=== PATIENT | male | born 1985 | race Caucasian/White ===

== ENCOUNTER 2018-07-06 05:44 | Inpatient (IN) ==
[2018-07-06] MEDS ORDERED: NALOXONE 0.4 MG/ML VIAL ONE (05:46)
[2018-07-06] MEDS ORDERED: SODIUM CHLORIDE 0.9% 1,000 ML IV STA ×3 (06:02→09:15)
[2018-07-06] MEDS ORDERED: ROCURONIUM 100 MG/10 ML VIAL IV STA (06:03)
[2018-07-06] MEDS ORDERED: ETOMIDATE 20 MG/10 ML VIAL IV STA (06:03)
[2018-07-06 06:24] LABS: ABG Base Excess -7.6 MMOL/L (-2.5-2.5); ABG HCO3 18.5 MMOL/L (20-26); ABG Oxygen Saturation 99.3 % (95-100); ABG PCO2 68.5 MM HG (35-48); ABG TCO2 21.3 MMOL/L (23-27); Allen Test Positive; Pt O2 Delivery Device Ventilator
[2018-07-06] MEDS ORDERED: NALOXONE 0.4 MG/ML VIAL IV STA (06:27)
[2018-07-06 06:30] LABS: Basophils # 0.1 10*3/uL (0.0-0.2); Basophils % 0.5 % (0.0-0.8); Hematocrit 48.6 VOL% (42.0-52.0); Immature Granulocytes % 3.9 %; Lymphocytes # 1.7 10*3/uL (1.4-4.0); Lymphocytes % 6.4 % (21.2-54.2); Mean Corpuscular HGB Conc 30.9 GM/DL (32-36); Mean Corpuscular Volume 97.2 FL (87-102); Mean Platelet Volume 10.1 FL (9.6-12.0); Monocytes % 9.6 % (1.7-12.7); Neutrophils % 79.6 % (38.7-73.9); Platelet Count 414 T/CUMM (130-400); Red Cell Distribution Width 14.2 % (9.3-17.3)
[2018-07-06] MEDS ORDERED: cefTRIAXone 2,000 MG in SODIUM CHLORIDE 0.9% 100 ML IV ONE (06:39)
[2018-07-06 06:46] LABS: Amorphous Crystals,Urine Moderate /HPF (Few); Apearance,Urine CLOUDY (Clear); Bilirubin,Urine Negative (Negative); Blood, Urine Large mg/dL (Negative); Glucose,Urine (UA) >=500 mg/dL (Negative); Ketones,Urine Negative (Negative); Mucus,Urine Occasional /LPF (Occasional); Nitrite,Urine Negative (Negative); Protein,Urine 100 MG/DL; RBC,Urine 2 /HPF (0-4); Urine Color Yellow (Yellow); Urine Specific Gravity 1.014 (1.001-1.035); Urine Urobilinogen < 2.0 EU/DL (0.2-1.0); WBC,Urine 2 /HPF (0-6)
[2018-07-06 06:50] LABS: Barbiturates Screen,Urine Negative (Negative); Benzodiazepines Screen,Urine Negative (Negative); Cannabinoid Screen,Urine Negative (Negative); Opiate Screen,Urine Negative (Negative); Phencyclidine Screen,Urine Negative (Negative)
[2018-07-06 06:51] LABS: Alanine Aminotransferase 67 U/L (16-61); Albumin 3.4 G/DL (3.4-5.0); Alkaline Phosphatase 101 U/L (45-117); Aspartate Amino Transferase 265 U/L (0-37); Bilirubin,Total < 0.39 MG/DL (0.2-1.0); Blood Urea Nitrogen 19 MG/DL (7-18); Calcium 8.3 MG/DL (8.5-10.1); Glucose 52 MG/DL (74-106); Osmolality,Calculated 277.4 MOS/KG (273-304); Total Protein 7.8 G/DL (6.4-8.3)
[2018-07-06 06:54] LABS: Anisocytosis 1+; Band Neutrophils 2 % (0-10); Lymphocytes 12 % (20-55); Platelet Estimate Adequate; Segmented Neutrophils 77 % (50-85); Total Cells Counted 100
[2018-07-06] MEDS ORDERED: PROPOFOL 1,000 MG/100 ML BOTTLE IV ONE (07:02)
[2018-07-06] MEDS ORDERED: PROPOFOL 1,000 MG/100 ML BOTTLE IV SCH (07:30)
[2018-07-06] MEDS ORDERED: cefTRIAXone 1,000 MG VIAL ONE (07:31)
[2018-07-06] MEDS ORDERED: NOREPINEPHRINE 4 MG/4 ML VIAL IV ONE ×2 (07:41→12:00)
[2018-07-06] MEDS: NOREPINEPHRINE 8 MG in SODIUM CHLORIDE 0.9% 242 ML IV PRN ×2 (08:05→12:04)
[2018-07-06] MEDS ORDERED: ALBUTEROL 2.5 MG/3 ML NEB RESP TX PRN (08:13)
[2018-07-06] MEDS ORDERED: ONDANSETRON 4 MG/2 ML VIAL IV PRN (08:13)
[2018-07-06] MEDS ORDERED: LACTATED RINGERS 1,000 ML IV SCH (08:30)
[2018-07-06] MEDS ORDERED: VECURONIUM 10 MG VIAL IV ONE (08:31)
[2018-07-06] MEDS ORDERED: VECURONIUM 10 MG VIAL IV STA (08:33)
[2018-07-06 09:09] LABS: Acetaminophen < 2.0 UG/ML (10-30)
[2018-07-06 09:41] LABS: Lymphocytes,CSF 33 %; Monocytes,CSF 67 %; Red Blood Cell,CSF 26 C/CUMM; White Blood Cell,CSF 2 C/CUMM
[2018-07-06 09:43] LABS: Appearance,CSF CLEAR
[2018-07-06] MEDS: PANTOPRAZOLE 40 MG VIAL IV SCH (09:44)
[2018-07-06] MEDS: ENOXAPARIN 40 MG/0.4 ML SYRINGE SUBCUT SCH (09:47)
[2018-07-06] MEDS ORDERED: MIDAZOLAM 2 MG/2 ML VIAL ONE (10:06)
[2018-07-06] MEDS ORDERED: MIDAZOLAM 2 MG/2 ML VIAL IV STA (10:10)
[2018-07-06] MEDS: LEVOFLOXACIN INJ 500 MG in PREMIX 1 EACH IV SCH (10:52)
[2018-07-06 11:11] LABS: Barbiturates Screen,Urine Negative (Negative); Benzodiazepines Screen,Urine Negative (Negative); Cannabinoid Screen,Urine Negative (Negative); Opiate Screen,Urine Negative (Negative); Phencyclidine Screen,Urine Negative (Negative)
[2018-07-06] MEDS ORDERED: LORazepam 2 MG/1 ML VIAL IV STA (11:20)
[2018-07-06] MEDS ORDERED: MORPHINE 4 MG/1 ML VIAL IV STA (11:20)
[2018-07-06] MEDS ORDERED: MORPHINE 4 MG/1 ML VIAL ONE (11:22)
[2018-07-06] MEDS ORDERED: LORazepam 2 MG/1 ML VIAL ONE (11:22)
[2018-07-06] MEDS: fentaNYL INJ 1,250 MCG in SODIUM CHLORIDE 0.9% 225 ML IV PRN ×2 (13:00→21:30)
[2018-07-06] MEDS: MIDAZOLAM 100 MG in SODIUM CHLORIDE 0.9% 80 ML IV PRN (13:00)
[2018-07-06] MEDS: ALBUTEROL/IPRATROPIUM 3 ML NEB RESP TX SCH ×2 (13:05→19:30)
[2018-07-06 14:01] LABS: ABG Base Excess -5.4 MMOL/L (-2.5-2.5); ABG HCO3 20.1 MMOL/L (20-26); ABG Oxygen Saturation 99.5 % (95-100); ABG PCO2 43.5 MM HG (35-48); ABG PH 7.298 (7.35-7.45); ABG TCO2 17.9 MMOL/L (23-27); Allen Test Positive; Pt O2 Delivery Device Ventilator
[2018-07-06 14:08] LABS: Alanine Aminotransferase 288 U/L (16-61); Alkaline Phosphatase 86 U/L (45-117); Aspartate Amino Transferase 1628 U/L (0-37); Bilirubin,Total < 0.39 MG/DL (0.2-1.0); Blood Urea Nitrogen 23 MG/DL (7-18); Glucose 99 MG/DL (74-106); Osmolality,Calculated 276.8 MOS/KG (273-304); Total Protein 7.1 G/DL (6.4-8.3)
[2018-07-06] MEDS ORDERED: SODIUM POLYSTYRENE SULFATE 15 GM/60 ML BOTTLE PO ONE (14:18)
[2018-07-06] MEDS: DEXTROSE 5% NACL 0.45% 1,000 ML IV SCH (16:27)
[2018-07-06 18:18] LABS: CKMB % 0.5 %
[2018-07-06 18:23] LABS: Troponin I 3.6 NG/ML (0.00-0.045)
[2018-07-06 21:34] LABS: CKMB % 0.7 %
[2018-07-06 21:36] LABS: Troponin I 7.03 NG/ML (0.00-0.045)
[2018-07-07] MEDS: DEXTROSE 5% NACL 0.45% 1,000 ML IV SCH ×2 (00:27→07:00)
[2018-07-07] MEDS: ALBUTEROL/IPRATROPIUM 3 ML NEB RESP TX SCH ×4 (01:08→20:18)
[2018-07-07 01:54] LABS: CKMB % 0.3 %
[2018-07-07 01:58] LABS: Troponin I 6.11 NG/ML (0.00-0.045)
[2018-07-07 04:46] LABS: ABG Base Excess -2.7 MMOL/L (-2.5-2.5); ABG HCO3 22.2 MMOL/L (20-26); ABG Oxygen Saturation 97.6 % (95-100); ABG PCO2 40.6 MM HG (35-48); ABG PH 7.356 (7.35-7.45); ABG TCO2 18.7 MMOL/L (23-27); Allen Test Positive; Pt O2 Delivery Device Ventilator
[2018-07-07 05:59] LABS: Basophils # 0.1 10*3/uL (0.0-0.2); Basophils % 0.3 % (0.0-0.8); Hematocrit 52.7 VOL% (42.0-52.0); Hemoglobin 16.7 GM/DL (14.0-18.0); Immature Granulocytes % 0.9 %; Immature Granulocytes Absolute 0.19 #; Lymphocytes # 1.2 10*3/uL (1.4-4.0); Lymphocytes % 5.5 % (21.2-54.2); Mean Corpuscular HGB Conc 31.7 GM/DL (32-36); Mean Corpuscular Volume 92.6 FL (87-102); Mean Platelet Volume 10.8 FL (9.6-12.0); Monocytes % 6.2 % (1.7-12.7); Neutrophils % 87.1 % (38.7-73.9); Platelet Count 315 T/CUMM (130-400); Red Blood Count 5.69 MC/CUMM (3.8-5.5); Red Cell Distribution Width 14.5 % (9.3-17.3)
[2018-07-07] MEDS: fentaNYL INJ 1,250 MCG in SODIUM CHLORIDE 0.9% 225 ML IV PRN ×3 (06:20→23:11)
[2018-07-07 06:23] LABS: Albumin 2.1 G/DL (3.4-5.0); Bilirubin,Total 0.6 MG/DL (0.2-1.0); Calcium 7.2 MG/DL (8.5-10.1); Osmolality,Calculated 286.7 MOS/KG (273-304); Total Protein 6.5 G/DL (6.4-8.3)
[2018-07-07 06:37] LABS: Band Neutrophils 4 % (0-10); Lymphocytes 4 % (20-55); Platelet Estimate Normal; Segmented Neutrophils 87 % (50-85); Total Cells Counted 100
[2018-07-07] MEDS ORDERED: IBUPROFEN 100 MG/5 ML UDCUP PO PRN (08:35)
[2018-07-07] MEDS: SODIUM BICARB INJ 150 MEQ in DEXTROSE 5% 850 ML IV SCH ×3 (09:45→21:30)
[2018-07-07] MEDS: methylPREDNISolone SOD SUC 40 MG/1 ML VIAL IV SCH ×2 (10:15→21:30)
[2018-07-07] MEDS: ENOXAPARIN 40 MG/0.4 ML SYRINGE SUBCUT SCH (10:16)
[2018-07-07] MEDS: METOPROLOL TARTRATE 5 MG/5 ML VIAL IV SCH ×3 (10:19→10:46)
[2018-07-07] MEDS: PANTOPRAZOLE 40 MG VIAL IV SCH (10:38)
[2018-07-07] MEDS: LEVOFLOXACIN INJ 500 MG in PREMIX 1 EACH IV SCH (10:39)
[2018-07-07] MEDS: cefTRIAXone 2,000 MG in SYRINGE 1 EACH IV SCH (14:22)
[2018-07-07] MEDS ORDERED: VECURONIUM 10 MG VIAL IV ONE ×2 (18:22→18:25)
[2018-07-07] MEDS: PROPOFOL 1,000 MG/100 ML BOTTLE IV SCH (19:50)
[2018-07-07] MEDS ORDERED: PROPOFOL 1,000 MG/100 ML BOTTLE IV ONE (19:51)
[2018-07-08] MEDS: PROPOFOL 1,000 MG/100 ML BOTTLE IV SCH ×2 (00:57→15:45)
[2018-07-08] MEDS: ALBUTEROL/IPRATROPIUM 3 ML NEB RESP TX SCH ×4 (00:58→19:44)
[2018-07-08] MEDS: SODIUM BICARB INJ 150 MEQ in DEXTROSE 5% 850 ML IV SCH ×2 (01:16→04:45)
[2018-07-08 04:11] LABS: ABG Base Excess 5.3 MMOL/L (-2.5-2.5); ABG HCO3 29.2 MMOL/L (20-26); ABG Oxygen Saturation 99.8 % (95-100); ABG PH 7.457 (7.35-7.45); ABG TCO2 25.3 MMOL/L (23-27); Pt O2 Delivery Device Ventilator
[2018-07-08 05:07] LABS: Basophils % 0.1 % (0.0-0.8); Eosinophils % 0.1 % (0.00-10.9); Hematocrit 42.3 VOL% (42.0-52.0); Hemoglobin 14.1 GM/DL (14.0-18.0); Immature Granulocytes % 0.5 %; Immature Granulocytes Absolute 0.08 #; Lymphocytes # 0.7 10*3/uL (1.4-4.0); Lymphocytes % 4.1 % (21.2-54.2); Mean Corpuscular HGB Conc 33.3 GM/DL (32-36); Mean Corpuscular Volume 90.8 FL (87-102); Neutrophils % 92.2 % (38.7-73.9); Platelet Count 259 T/CUMM (130-400); Red Blood Count 4.66 MC/CUMM (3.8-5.5); Red Cell Distribution Width 14.5 % (9.3-17.3); White Blood Count 16.2 T/CUMM (4-12)
[2018-07-08 05:40] LABS: Albumin 1.9 G/DL (3.4-5.0); Bilirubin,Total 0.7 MG/DL (0.2-1.0); Calcium 7.5 MG/DL (8.5-10.1); Osmolality,Calculated 290.7 MOS/KG (273-304); Total Protein 5.8 G/DL (6.4-8.3)
[2018-07-08 06:49] LABS: Lymphocytes 3 % (20-55); Segmented Neutrophils 93 % (50-85); Total Cells Counted 100
[2018-07-08 06:50] LABS: Anisocytosis Slight; Microcytosis Slight
[2018-07-08 06:51] LABS: Platelet Estimate Normal
[2018-07-08] MEDS: fentaNYL INJ 1,250 MCG in SODIUM CHLORIDE 0.9% 225 ML IV PRN ×2 (08:24→17:57)
[2018-07-08] MEDS: SODIUM BICARB INJ 50 MEQ in DEXTROSE 5% NACL 0.45% 1,000 ML IV SCH ×5 (09:12→23:01)
[2018-07-08] MEDS: methylPREDNISolone SOD SUC 40 MG/1 ML VIAL IV SCH ×2 (09:16→21:51)
[2018-07-08] MEDS: PANTOPRAZOLE 40 MG VIAL IV SCH (09:16)
[2018-07-08] MEDS: ENOXAPARIN 30 MG/0.3 ML SYRINGE SUBCUT SCH (09:22)
[2018-07-08] MEDS ORDERED: DEXTROSE 50% 25 GM/50 ML SYRINGE IV PRN (10:54)
[2018-07-08] MEDS ORDERED: GLUCAGON 1 MG VIAL IM PRN (10:54)
[2018-07-08] MEDS: ASPIRIN CHEW 81 MG TABLET PO SCH (14:44)
[2018-07-08] MEDS: INSULIN REGULAR 100 UNIT/ML SUBCUT SCH ×3 (14:44→23:55)
[2018-07-08] MEDS: cefTRIAXone 2,000 MG in SYRINGE 1 EACH IV SCH (14:56)
[2018-07-08] MEDS: MIDAZOLAM 100 MG in SODIUM CHLORIDE 0.9% 80 ML IV PRN (20:15)
[2018-07-09] MEDS: PROPOFOL 1,000 MG/100 ML BOTTLE IV SCH ×5 (00:17→20:38)
[2018-07-09] MEDS: ALBUTEROL/IPRATROPIUM 3 ML NEB RESP TX SCH ×4 (00:58→19:46)
[2018-07-09] MEDS: fentaNYL INJ 1,250 MCG in SODIUM CHLORIDE 0.9% 225 ML IV PRN ×3 (02:28→20:37)
[2018-07-09 04:17] LABS: Basophils % 0.1 % (0.0-0.8); Hematocrit 38.5 VOL% (42.0-52.0); Hemoglobin 12.2 GM/DL (14.0-18.0); Immature Granulocytes % 0.6 %; Immature Granulocytes Absolute 0.07 #; Lymphocytes # 0.5 10*3/uL (1.4-4.0); Lymphocytes % 4.4 % (21.2-54.2); Mean Corpuscular HGB Conc 31.7 GM/DL (32-36); Mean Corpuscular Volume 91.7 FL (87-102); Mean Platelet Volume 10.6 FL (9.6-12.0); Monocytes % 4.6 % (1.7-12.7); Neutrophils % 90.3 % (38.7-73.9); Platelet Count 218 T/CUMM (130-400); Red Cell Distribution Width 14.6 % (9.3-17.3); White Blood Count 11.4 T/CUMM (4-12)
[2018-07-09 04:34] LABS: Alanine Aminotransferase 318 U/L (16-61); Albumin 1.8 G/DL (3.4-5.0); Alkaline Phosphatase 53 U/L (45-117); Aspartate Amino Transferase 728 U/L (0-37); Bilirubin,Total < 0.39 MG/DL (0.2-1.0); Blood Urea Nitrogen 40 MG/DL (7-18); Calcium 7.3 MG/DL (8.5-10.1); Glucose 214 MG/DL (74-106); Osmolality,Calculated 294.4 MOS/KG (273-304); Total Protein 5.2 G/DL (6.4-8.3)
[2018-07-09 04:35] LABS: Prealbumin 14.6 MG/DL (20-40)
[2018-07-09 04:40] LABS: ABG Base Excess 8.9 MMOL/L (-2.5-2.5); ABG HCO3 32.7 MMOL/L (20-26); ABG Oxygen Saturation 99.8 % (95-100); ABG PCO2 45.3 MM HG (35-48); ABG TCO2 29.2 MMOL/L (23-27); Allen Test Positive; Pt O2 Delivery Device Ventilator
[2018-07-09 05:09] LABS: Lymphocytes 4 % (20-55); Segmented Neutrophils 96 % (50-85); Total Cells Counted 100
[2018-07-09 05:10] LABS: Platelet Estimate Adequate
[2018-07-09] MEDS: SODIUM BICARB INJ 50 MEQ in DEXTROSE 5% NACL 0.45% 1,000 ML IV SCH (05:29)
[2018-07-09] MEDS: INSULIN REGULAR 100 UNIT/ML SUBCUT SCH ×4 (06:14→23:29)
[2018-07-09] MEDS: methylPREDNISolone SOD SUC 40 MG/1 ML VIAL IV SCH ×2 (10:00→20:45)
[2018-07-09] MEDS: PANTOPRAZOLE 40 MG VIAL IV SCH (10:01)
[2018-07-09] MEDS: ENOXAPARIN 30 MG/0.3 ML SYRINGE SUBCUT SCH (10:02)
[2018-07-09] MEDS: ASPIRIN CHEW 81 MG TABLET PO SCH (10:04)
[2018-07-09] MEDS: LACTATED RINGERS 1,000 ML IV SCH ×2 (10:33→20:33)
[2018-07-09] MEDS: METOPROLOL TARTRATE 25 MG TABLET PO SCH ×2 (10:43→20:45)
[2018-07-09] MEDS: POTASSIUM CHLORIDE 20 MEQ/15 ML UDCUP PER TUBE SCH ×2 (10:43→20:45)
[2018-07-09] MEDS: LEVOFLOXACIN INJ 500 MG in PREMIX 1 EACH IV SCH (10:44)
[2018-07-09] MEDS: cefTRIAXone 2,000 MG in SYRINGE 1 EACH IV SCH (15:45)
[2018-07-10] MEDS: ALBUTEROL/IPRATROPIUM 3 ML NEB RESP TX SCH ×4 (01:04→20:44)
[2018-07-10 03:18] LABS: ABG Base Excess 7.1 MMOL/L (-2.5-2.5); ABG HCO3 31.9 MMOL/L (20-26); ABG PCO2 45.9 MM HG (35-48); ABG PO2 181.3 MM HG (80-95); ABG TCO2 33.3 MMOL/L (23-27); Allen Test Positive; Pt O2 Delivery Device Ventilator
[2018-07-10] MEDS: PROPOFOL 1,000 MG/100 ML BOTTLE IV SCH ×5 (03:32→23:16)
[2018-07-10] MEDS: LACTATED RINGERS 1,000 ML IV SCH ×2 (05:47→15:42)
[2018-07-10] MEDS: fentaNYL INJ 1,250 MCG in SODIUM CHLORIDE 0.9% 225 ML IV PRN ×2 (05:48→15:16)
[2018-07-10 05:53] LABS: Eosinophils % 0.1 % (0.00-10.9); Hematocrit 35.1 VOL% (42.0-52.0); Hemoglobin 11.3 GM/DL (14.0-18.0); Immature Granulocytes % 0.5 %; Immature Granulocytes Absolute 0.04 #; Lymphocytes # 0.6 10*3/uL (1.4-4.0); Lymphocytes % 8.1 % (21.2-54.2); Mean Corpuscular HGB Conc 32.2 GM/DL (32-36); Mean Corpuscular Volume 92.1 FL (87-102); Mean Platelet Volume 11.1 FL (9.6-12.0); Monocytes % 6.6 % (1.7-12.7); Neutrophils % 84.7 % (38.7-73.9); Platelet Count 210 T/CUMM (130-400); Red Blood Count 3.81 MC/CUMM (3.8-5.5); Red Cell Distribution Width 14.4 % (9.3-17.3); White Blood Count 7.9 T/CUMM (4-12)
[2018-07-10 06:12] LABS: Albumin 2.1 G/DL (3.4-5.0); Bilirubin,Total 0.4 MG/DL (0.2-1.0); Calcium 8.1 MG/DL (8.5-10.1); Osmolality,Calculated 295.4 MOS/KG (273-304); Total Protein 5.3 G/DL (6.4-8.3)
[2018-07-10] MEDS: INSULIN REGULAR 100 UNIT/ML SUBCUT SCH ×3 (06:12→18:40)
[2018-07-10] MEDS ORDERED: POTASSIUM CHLORIDE 20 MEQ/15 ML UDCUP PER TUBE SCH (09:00)
[2018-07-10] MEDS: METOPROLOL TARTRATE 25 MG TABLET PO SCH ×2 (11:45→21:50)
[2018-07-10] MEDS: ENOXAPARIN 30 MG/0.3 ML SYRINGE SUBCUT SCH (11:45)
[2018-07-10] MEDS: PANTOPRAZOLE 40 MG VIAL IV SCH (11:45)
[2018-07-10] MEDS: methylPREDNISolone SOD SUC 40 MG/1 ML VIAL IV SCH ×2 (11:50→21:50)
[2018-07-10] MEDS: cefTRIAXone 2,000 MG in SYRINGE 1 EACH IV SCH (14:00)
[2018-07-10 15:46] LABS: West Nile Virus Ab, IgG, CSF Negative (Negative); West Nile Virus Ab, IgM, CSF Negative (Negative)
[2018-07-11] MEDS: INSULIN REGULAR 100 UNIT/ML SUBCUT SCH ×4 (00:18→18:42)
[2018-07-11] MEDS: LACTATED RINGERS 1,000 ML IV SCH ×4 (00:30→22:10)
[2018-07-11] MEDS: ALBUTEROL/IPRATROPIUM 3 ML NEB RESP TX SCH ×4 (02:20→18:49)
[2018-07-11] MEDS: PROPOFOL 1,000 MG/100 ML BOTTLE IV SCH ×5 (02:30→23:36)
[2018-07-11 03:40] LABS: ABG Base Excess 5.5 MMOL/L (-2.5-2.5); ABG HCO3 29.4 MMOL/L (20-26); ABG Oxygen Saturation 99.3 % (95-100); ABG PCO2 43.9 MM HG (35-48); ABG PH 7.447 (7.35-7.45); ABG TCO2 26.5 MMOL/L (23-27); Allen Test Positive; Pt O2 Delivery Device Ventilator
[2018-07-11] MEDS: MIDAZOLAM 100 MG in SODIUM CHLORIDE 0.9% 80 ML IV PRN (05:51)
[2018-07-11] MEDS: fentaNYL INJ 1,250 MCG in SODIUM CHLORIDE 0.9% 225 ML IV PRN ×3 (05:52→19:42)
[2018-07-11 06:13] LABS: Hemoglobin 11.9 GM/DL (14.0-18.0); Immature Granulocytes % 0.5 %; Immature Granulocytes Absolute 0.05 #; Lymphocytes % 10.5 % (21.2-54.2); Mean Corpuscular HGB Conc 32.2 GM/DL (32-36); Mean Corpuscular Volume 91.8 FL (87-102); Mean Platelet Volume 10.9 FL (9.6-12.0); Monocytes % 6.7 % (1.7-12.7); Neutrophils % 82.3 % (38.7-73.9); Platelet Count 204 T/CUMM (130-400); Red Blood Count 4.03 MC/CUMM (3.8-5.5); Red Cell Distribution Width 14.3 % (9.3-17.3); White Blood Count 9.5 T/CUMM (4-12)
[2018-07-11 06:28] LABS: INR 0.9; PT Patient Result 9.8 SECS; Partial Thromboplastin Time 24.7 SECS (0-40)
[2018-07-11 06:46] LABS: Alanine Aminotransferase 334 U/L (16-61); Albumin 2.4 G/DL (3.4-5.0); Alkaline Phosphatase 50 U/L (45-117); Aspartate Amino Transferase 490 U/L (0-37); Bilirubin,Total < 0.39 MG/DL (0.2-1.0); Blood Urea Nitrogen 53 MG/DL (7-18); Calcium 8.4 MG/DL (8.5-10.1); Glucose 116 MG/DL (74-106); Total Protein 5.6 G/DL (6.4-8.3)
[2018-07-11] MEDS: PANTOPRAZOLE 40 MG VIAL IV SCH (10:19)
[2018-07-11] MEDS: METOPROLOL TARTRATE 25 MG TABLET PO SCH ×3 (10:20→21:01)
[2018-07-11] MEDS: ENOXAPARIN 30 MG/0.3 ML SYRINGE SUBCUT SCH (10:20)
[2018-07-11] MEDS: methylPREDNISolone SOD SUC 40 MG/1 ML VIAL IV SCH ×2 (10:20→20:50)
[2018-07-11] MEDS: LEVOFLOXACIN INJ 500 MG in PREMIX 1 EACH IV SCH (10:21)
[2018-07-11 15:22] LABS: Hepatitis B Core IgM Quant 0.12 Index; Hepatitis B Surface Ag Quant < 0.10 Index; Hepatitis B Surface Ag Result Negative (Negative); Hepatitis C Virus Ab Quant < 0.02 Index; Hepatitis C Virus Ab Result Negative (Negative)
[2018-07-11] MEDS: cefTRIAXone 2,000 MG in SYRINGE 1 EACH IV SCH (19:15)
[2018-07-12] MEDS: INSULIN REGULAR 100 UNIT/ML SUBCUT SCH ×5 (00:52→23:13)
[2018-07-12] MEDS: ALBUTEROL/IPRATROPIUM 3 ML NEB RESP TX SCH ×4 (01:39→20:00)
[2018-07-12] MEDS: MIDAZOLAM 100 MG in SODIUM CHLORIDE 0.9% 80 ML IV PRN (01:45)
[2018-07-12] MEDS: fentaNYL INJ 1,250 MCG in SODIUM CHLORIDE 0.9% 225 ML IV PRN (03:17)
[2018-07-12 04:39] LABS: Allen Test Positive; Pt O2 Delivery Device Ventilator
[2018-07-12 04:40] LABS: ABG Base Excess 4.7 MMOL/L (-2.5-2.5); ABG HCO3 28.7 MMOL/L (20-26); ABG Oxygen Saturation 99.8 % (95-100); ABG PCO2 41.1 MM HG (35-48); ABG PH 7.457 (7.35-7.45); ABG TCO2 25.5 MMOL/L (23-27)
[2018-07-12] MEDS: PROPOFOL 1,000 MG/100 ML BOTTLE IV SCH ×2 (04:44→21:26)
[2018-07-12 05:40] LABS: Alanine Aminotransferase 286 U/L (16-61); Albumin 2.1 G/DL (3.4-5.0); Alkaline Phosphatase 50 U/L (45-117); Aspartate Amino Transferase 277 U/L (0-37); Bilirubin,Total < 0.39 MG/DL (0.2-1.0); Blood Urea Nitrogen 50 MG/DL (7-18); Calcium 8.3 MG/DL (8.5-10.1); Glucose 151 MG/DL (74-106); Total Protein 5.3 G/DL (6.4-8.3)
[2018-07-12] MEDS: LACTATED RINGERS 1,000 ML IV SCH ×2 (07:46→19:00)
[2018-07-12] MEDS ORDERED: LEVOFLOXACIN INJ 500 MG in PREMIX 1 EACH IV SCH (10:00)
[2018-07-12] MEDS: PANTOPRAZOLE 40 MG VIAL IV SCH (10:55)
[2018-07-12] MEDS: METOPROLOL TARTRATE 25 MG TABLET PO SCH ×2 (10:55→20:44)
[2018-07-12] MEDS: ENOXAPARIN 40 MG/0.4 ML SYRINGE SUBCUT SCH (10:55)
[2018-07-12] MEDS: methylPREDNISolone SOD SUC 40 MG/1 ML VIAL IV SCH ×2 (10:55→20:44)
[2018-07-12] MEDS ORDERED: LORazepam 1 MG TABLET PER TUBE PRN (12:54)
[2018-07-12] MEDS: cefTRIAXone 2,000 MG in SYRINGE 1 EACH IV SCH (14:30)
[2018-07-12] MEDS: QUEtiapine 100 MG TABLET PER TUBE SCH ×2 (14:30→20:44)
[2018-07-12] MEDS: LORazepam 2 MG/1 ML VIAL IV PRN ×2 (19:10→23:13)
[2018-07-13] MEDS: ALBUTEROL/IPRATROPIUM 3 ML NEB RESP TX SCH ×4 (01:00→19:13)
[2018-07-13] MEDS: LACTATED RINGERS 1,000 ML IV SCH ×2 (04:00→14:58)
[2018-07-13 04:06] LABS: Basophils % 0.1 % (0.0-0.8); Eosinophils % 0.1 % (0.00-10.9); Hematocrit 32.1 VOL% (42.0-52.0); Hemoglobin 10.4 GM/DL (14.0-18.0); Immature Granulocytes % 0.4 %; Immature Granulocytes Absolute 0.06 #; Lymphocytes # 1.4 10*3/uL (1.4-4.0); Lymphocytes % 9.2 % (21.2-54.2); Mean Corpuscular HGB Conc 32.4 GM/DL (32-36); Mean Platelet Volume 11.1 FL (9.6-12.0); Monocytes % 5.2 % (1.7-12.7); Platelet Count 200 T/CUMM (130-400); Red Blood Count 3.49 MC/CUMM (3.8-5.5); White Blood Count 15.4 T/CUMM (4-12)
[2018-07-13 04:36] LABS: Albumin 2.6 G/DL (3.4-5.0); Bilirubin,Total 0.9 MG/DL (0.2-1.0); Calcium 8.5 MG/DL (8.5-10.1); Total Protein 5.5 G/DL (6.4-8.3)
[2018-07-13] MEDS: INSULIN REGULAR 100 UNIT/ML SUBCUT SCH ×4 (05:32→23:52)
[2018-07-13] MEDS ORDERED: methylPREDNISolone SOD SUC 40 MG/1 ML VIAL IV SCH (09:09)
[2018-07-13] MEDS: PANTOPRAZOLE 40 MG VIAL IV SCH (09:15)
[2018-07-13] MEDS: QUEtiapine 100 MG TABLET PER TUBE SCH ×2 (09:15→21:00)
[2018-07-13] MEDS: ENOXAPARIN 40 MG/0.4 ML SYRINGE SUBCUT SCH (09:16)
[2018-07-13] MEDS: METOPROLOL TARTRATE 25 MG TABLET PO SCH ×2 (09:18→21:00)
[2018-07-13] MEDS: methylPREDNISolone SOD SUC 40 MG/1 ML VIAL IV SCH (11:58)
[2018-07-13] MEDS: LORazepam 2 MG/1 ML VIAL IV PRN ×2 (12:38→21:00)
[2018-07-13] MEDS: cefTRIAXone 2,000 MG in SYRINGE 1 EACH IV SCH (16:10)
[2018-07-14] MEDS: LACTATED RINGERS 1,000 ML IV SCH (00:17)
[2018-07-14] MEDS: ALBUTEROL/IPRATROPIUM 3 ML NEB RESP TX SCH ×3 (01:46→18:53)
[2018-07-14 05:21] LABS: Albumin 2.5 G/DL (3.4-5.0); Bilirubin,Total 0.9 MG/DL (0.2-1.0); Calcium 8.1 MG/DL (8.5-10.1); Osmolality,Calculated 297.8 MOS/KG (273-304); Total Protein 5.4 G/DL (6.4-8.3)
[2018-07-14] MEDS: INSULIN REGULAR 100 UNIT/ML SUBCUT SCH (06:19)
[2018-07-14] MEDS ORDERED: IBUPROFEN 400 MG TABLET PO PRN (08:38)
[2018-07-14] MEDS ORDERED: LEVOFLOXACIN 500 MG TABLET PO SCH (09:00)
[2018-07-14] MEDS ORDERED: CEFUROXIME 250 MG TABLET PO SCH (09:00)
[2018-07-14] MEDS ORDERED: methylPREDNISolone SOD SUC 40 MG/1 ML VIAL IV SCH (09:00)
[2018-07-14] MEDS: METOPROLOL TARTRATE 25 MG TABLET PO SCH ×2 (09:37→21:05)
[2018-07-14] MEDS: DOXYCYCLINE HYCLATE 100 MG CAPSULE PO SCH ×2 (09:37→21:05)
[2018-07-14] MEDS: ENOXAPARIN 40 MG/0.4 ML SYRINGE SUBCUT SCH (09:40)
[2018-07-14] MEDS: PANTOPRAZOLE 40 MG TABLET PO SCH (09:40)
[2018-07-14] MEDS: QUEtiapine 100 MG TABLET PO SCH ×2 (09:40→21:06)
[2018-07-14] MEDS ORDERED: LORazepam 1 MG TABLET PO PRN (13:42)
[2018-07-14] MEDS: RIFAMPIN 300 MG CAPSULE PO SCH ×2 (17:43→21:10)
[2018-07-15] MEDS: ACETAMINOPHEN 325 MG TABLET PO PRN ×2 (04:55→16:24)
[2018-07-15] MEDS: ALBUTEROL/IPRATROPIUM 3 ML NEB RESP TX SCH ×2 (07:05→19:16)
[2018-07-15] MEDS: QUEtiapine 100 MG TABLET PO SCH ×2 (09:43→20:56)
[2018-07-15] MEDS: PANTOPRAZOLE 40 MG TABLET PO SCH (09:43)
[2018-07-15] MEDS: DOXYCYCLINE HYCLATE 100 MG CAPSULE PO SCH ×2 (09:43→20:59)
[2018-07-15] MEDS: RIFAMPIN 300 MG CAPSULE PO SCH ×2 (09:44→20:56)
[2018-07-15] MEDS: METOPROLOL TARTRATE 25 MG TABLET PO SCH ×2 (09:44→20:56)
[2018-07-15] MEDS: ENOXAPARIN 40 MG/0.4 ML SYRINGE SUBCUT SCH (09:44)
[2018-07-16] MEDS: ACETAMINOPHEN 325 MG TABLET PO PRN (02:22)
[2018-07-16 04:56] LABS: Basophils % 0.2 % (0.0-0.8); Eosinophils # 1.1 10*3/uL (0.0-0.87); Eosinophils % 6.3 % (0.00-10.9); Hematocrit 39.6 VOL% (42.0-52.0); Hemoglobin 12.8 GM/DL (14.0-18.0); Immature Granulocytes % 1.2 %; Lymphocytes # 2.3 10*3/uL (1.4-4.0); Lymphocytes % 13.5 % (21.2-54.2); Mean Corpuscular HGB Conc 32.3 GM/DL (32-36); Mean Corpuscular Volume 92.3 FL (87-102); Monocytes % 7.7 % (1.7-12.7); Neutrophils % 71.1 % (38.7-73.9); Platelet Count 216 T/CUMM (130-400); Red Blood Count 4.29 MC/CUMM (3.8-5.5); Red Cell Distribution Width 13.7 % (9.3-17.3); White Blood Count 17.2 T/CUMM (4-12)
[2018-07-16 05:10] LABS: Osmolality,Calculated 285.5 MOS/KG (273-304)
[2018-07-16] MEDS: ALBUTEROL/IPRATROPIUM 3 ML NEB RESP TX SCH (07:21)
[2018-07-16] MEDS ORDERED: SULFAMETHOX/TRIMETHOPRIM 800-160 MG TABLET PO SCH (09:00)
[2018-07-16] MEDS: QUEtiapine 100 MG TABLET PO SCH (09:28)
[2018-07-16] MEDS: PANTOPRAZOLE 40 MG TABLET PO SCH (09:29)
[2018-07-16] MEDS: METOPROLOL TARTRATE 25 MG TABLET PO SCH (09:29)
[2018-07-16] MEDS: ENOXAPARIN 40 MG/0.4 ML SYRINGE SUBCUT SCH (11:16)
[2018-07-16] MEDS ORDERED: NICOTINE 21 MG/24 HR PATCH TRANSDERM SCH (11:30)
[2018-07-16 12:52] VITALS: BP 105/58
== END 2018-07-16 13:30 | disposition home or self-care (01) | DRG 917 ==
LOC: N.ED 05:44 → SUATTDRO 08:13 → N.EDINP 08:13 → N.CC 12:32 → N.2E 07-14 16:08
PROVIDERS: ADMIT Family Medicine; ATTEND Internal Medicine